=== PATIENT | female | born 1975 | race African-American/Black ===

== ENCOUNTER 2016-12-12 23:34 | Emergency (ER) | payer OTHER ==
[~2016-12-12 23:34] MED LIST: ATEN25 PO; BENTYL20 PO; ERYTHROMYCIN; FLAG500TAB PO; LORTAB 5 PO; MIRALAXPKT PO; PRILOSEC40 MG PO; PROAIR HFA INH; PROVHFA INH; SUCR PO; XOPEN0.5ML INH; ZANTAC300 MG PO; ZIRGAN5 GM OPH
[2016-12-12 23:58] LABS: BASOPHILS 0.4 %; BASOPHILS ABSOLUTE 0.03 10/3/uL (0.0-0.16); EOSINOPHILS 1.3 %; ER CBC TAT 0 Hrs 22 Mins; HEMATOCRIT 33.5 % (36.0-48.0); HEMOGLOBIN 11.2 g/dL (12.0-16.0); IMMATURE GRANULOCYTES 0.3 %; IMMATURE GRANULOCYTES ABSOLUTE 0.02 10/3/uL (0.0-0.11); LYMPHOCYTES 19.6 %; LYMPHOCYTES ABSOLUTE 1.56 10/3/uL (0.67-4.30); MEAN CORPUS HGB CONC 33.4 g/dL (32.0-36.0); MEAN CORPUSCULAR HEMOGLOB 30.2 pg (26.0-34.0); MEAN CORPUSCULAR VOLUME 90.3 fL (80-100); MEAN PLATELET VOLUME 10.7 fL (9.2-13.0); MONOCYTES 8.8 %; NEUTROPHILS 69.6 %; NEUTROPHILS ABSOLUTE 5.53 10/3/uL (2.02-8.40); PLATELET COUNT 199 10/3/uL (150-400); RBC DISTRIBUTION WIDTH 13.2 % (12.0-16.0); RED CELL COUNT 3.71 10/6/uL (4.0-5.6); WHITE BLOOD CELLS 7.9 10/3/uL (4.5-10.5)
[2016-12-13 00:04] LABS: MANUAL DIFF NO %
[2016-12-13 00:13] LABS: BUN (BLOOD UREA NITROGEN) 9 MG/DL (6-23); CALCIUM, SERUM 8.8 MG/DL (8.5-10.4); CHLORIDE, SERUM 112 MMOL/L (96-112); CO2 (CARBON DIOXIDE) 27 MMOL/L (24-34); CREATININE 0.77 MG/DL (0.55-1.02); GFR AFRICAN AMERICAN 113 ML/MIN (>=60); GFR NON AFRICAN AMERICAN 97 ML/MIN (>=60); GLUCOSE, SERUM 95 MG/DL (60-99); POTASSIUM, SERUM 3.4 MMOL/L (3.5-5.3); SODIUM, SERUM 142 MMOL/L (135-148); TROPONIN I <0.02 NG/ML (<0.05)
[2016-12-13 00:15] LABS: CHEST PAIN PROFILE TAT 0 Hrs 37 Mins
[2016-12-13 00:21] LABS: INTERNATIONAL NORMAL RATI 1.2 UNITS (-); PARTIAL THROMBO TIME 28.9 SEC (22.5-37.2); PROTIME (NOT ORD) 14.8 SEC (12.0-14.5)
== END 2016-12-13 03:56 | disposition home or self-care (01) ==
LOC: ER 23:34
PROVIDERS: Nurse Practitioner
DX: K31.84 Gastroparesis (principal); I10 Essential (primary) hypertension; K21.9 Gastro-esophageal reflux disease without esophagitis; J45.909 Unspecified asthma, uncomplicated; Z90.49 Acquired absence of other specified parts of digestive tract; Z90.710 Acquired absence of both cervix and uterus; Z88.2 Allergy status to sulfonamides; Z88.0 Allergy status to penicillin; Z79.51 Long term (current) use of inhaled steroids; Z79.899 Other long term (current) drug therapy
CPT/HCPCS: 71010; 74176; 80048; 83690; 83735; 84484; 85025; 85610; 85730; 93005; 96374; 99285; A9270-GY; J1200